=== PATIENT | female | born 1980 | race Two or more races ===

== ENCOUNTER 2025-06-02 18:22 | Emergency (ER) | payer MEDICAID, OTHER ==
[~2025-06-02] VITALS: Ht 165.1 cm; Wt 113.7 kg
[2025-06-02 18:32] VITALS: BP 209/160; PULSE 91; RESP 18; TEMP 99.3; O2SAT 99
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
[2025-06-02] MEDS ORDERED: HYDR-4902 PO (20:29)
[2025-06-02] MEDS ORDERED: BACIOIN15 TOP (20:29)
[2025-06-02] MEDS ORDERED: IBUP-1455 PO (20:29)
[2025-06-02] MEDS: SILVER SULFADIAZINE 1 % TOPICAL CREAM 50GM TOP ONE (20:45)
[2025-06-04] MEDS ORDERED: IBUP-1455 PO (12:28)
[2025-06-04] MEDS ORDERED: BACIOIN15 TOP (12:28)
[2025-06-04] MEDS ORDERED: HYDR-4902 PO (12:28)
== END 2025-06-02 20:45 | disposition home or self-care (01) ==
LOC: ER 18:22
DX: S50.12XA Contusion of left forearm, initial encounter (principal); V43.52XA Car driver injured in collision with other type car in traffic accident, initial encounter; Y93.I9 Activity, other involving external motion; Y92.488 Other paved roadways as the place of occurrence of the external cause; Y99.8 Other external cause status
CPT/HCPCS: 73090

== ENCOUNTER 2025-06-13 13:47 | Inpatient (IN) | payer MEDICAID, OTHER ==
[~2025-06-13] VITALS: Ht 172.7 cm; Wt 105.0 kg
[~2025-06-13 13:47] MED LIST: BACIOIN15 TOP; HYDR-4902 PO; IBUP-1455 PO
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
[2025-06-13 14:49] LABS: Hematocrit 34.9 % (36.0-46.0); Hemoglobin 11.6 g/dL (12.2-16.2); Mean Corpuscular Hemoglobin 21.8 pg (28.0-32.0); Mean Corpuscular Volume 65.2 fL (80.0-100.0); Nucleated Red Blood Cells % 0.1 %
[2025-06-13 14:53] LABS: Chloride 103 mmol/L (98-107); Sodium 141 mmol/L (136-145)
[2025-06-13 14:54] LABS: Anion Gap 11 (5-15); Carbon Dioxide 27 mmol/L (20-31)
[2025-06-13 14:55] LABS: Calcium 9.4 mg/dL (8.7-10.4)
[2025-06-13 14:57] LABS: Potassium 3.4 mmol/L (3.5-5.1)
[2025-06-13 15:00] LABS: BUN/Creatinine Ratio 8.8 (10.0-20.0); Blood Urea Nitrogen 11 mg/dL (9-23)
[2025-06-13 15:03] LABS: Glucose 109 mg/dL (74-106)
--- NOTE | 2025-06-13 15:10 | DVH ---
EXAM: CT HEAD WITHOUT CONTRAST INDICATION: pain TECHNIQUE: CT of the head without intravenous contrast. Radiation Dose Information: CT Dose: CTDI volume is 48.46 mGy. Dose-length product is 1152.11 mGy*cm The dose indicators for CT are the volume Computed Tomography (CT) Dose Index (CTDIvol) and the Dose Length Product (DLP), and are measured in units of mGy and mGy-cm, respectively. These indicators are not patient dose, but values generated from the CT scanner acquisition factors. The report includes radiation exposure data for exposures received during this examination. COMPARISON: None FINDINGS: There is no evidence of acute intracranial hemorrhage, extra-axial collection, mass effect, midline s hift, herniation or hydrocephalus. The ventricles, sulci and cisterns are age appropriate. The otoole-white differentiation is intact. Patchy periventricular and subcortical white matter hypoattenuation is nonspecific but may be related to small vessel ischemic disease. The visualized paranasal sinuses and mastoid air cells are clear. Inflammatory changes in the subcutaneous tissues around the right parotid may be secondary to infecti on. IMPRESSION: 1. No acute intracranial abnormality.
[2025-06-13] MEDS: SODIUM CHLORIDE 0.9% 1,000 ML IVB ONE ×2 (15:35→22:22)
[2025-06-13] MEDS: HYDROcodone-ACET 5/325MG TAB PO ONE (16:16)
--- NOTE | 2025-06-13 17:05 | DVH ---
CLINICAL INDICATION: fall TECHNIQUE: 3 radiographic views of the left hip were obtained. Comparison: None FINDINGS/IMPRESSION: No fractures or dislocations. Mild arthritic changes left hip.
[2025-06-13] MEDS: BACITRACIN TOP OINT 1 UD PKG TOP ONE (17:17)
--- NOTE | 2025-06-13 18:59 | ECG ---
[facility] Test Date: 2025-06-13 Test Time: 13:59:46 Pat Name: SYDNEE GARCIA Department: [facility] ED Room: [address] [place] [address] Gender: F Pot Feeder: ARIS : 1980 Requested By: NANCY WINSLOW Order Number: [id number] Reading MD: Tal Cabrales Measurements Intervals [place] Rate: 102 P: 55 [place]: 134 QRS: 27 QRSD: 77 T: 167 QT: 310 QTc: 404 Interpretive Statements Sinus tachycardia Ventricular premature complex Aberrant complex Probable left atrial enlargement Abnormal T, consider ischemia, lateral leads Borderline ST elevation, anterior leads Electronically Signed On 06-18-2025 17:58:02 PDT by Tal Cabrales Please click the below link to view image of tracing.
[2025-06-13] MEDS: MORPHINE SULFATE 4 MG/ML SYR/VIAL IV ONE (19:26)
[2025-06-13] MEDS: ONDANSETRON HCL 4 MG/2 ML VIAL IV ONE (19:26)
[2025-06-13 19:59] LABS: Urine Protein, UAD TRACE (Negative)
[2025-06-13 20:02] LABS: Cannabinoid Screen, Urine Pos (NEGATIVE); Opiate Scree,Urine Neg (NEGATIVE)
[2025-06-13 20:03] LABS: Amphetamine Screen, Urine Neg (NEGATIVE); Barbiturate Scree,Urine Neg (NEGATIVE); Benzodiazephine Screen, Urine Neg (NEGATIVE); Cocaine Screen, Urine Neg (NEGATIVE); Phencyclidine Screen, Urine Neg (NEGATIVE)
[2025-06-13] MEDS ORDERED: ONDANSETRON HCL 4 MG/2 ML VIAL IV PRN (21:45)
[2025-06-13] MEDS: levETIRAcetam 500 mg/100ml 100 ML IV ONE (22:21)
[2025-06-13] MEDS: LORazepam 2MG/ML-1ML VIAL IV ONE (22:22)
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
[2025-06-14] MEDS: POTASSIUM CHL 10 Meq TABLET PO ONE (00:51)
[2025-06-14 01:09] VITALS: BP 139/80; PULSE 71; RESP 18; TEMP 97.5; O2SAT 97
--- NOTE | 2025-06-14 07:43 | DVHDSRES ---
Discharge Summary Date of Admission Resident Creating Document: SAMMIE FAM Jun 13, 2025 at 21:32 Date of Discharge: Jun 14, 2025 Admitting Diagnosis Seizures Labs/Diagnostic Data: Laboratory Results Test 06/13/25 19:39 06/13/25 14:23 Urine Color Light-yellow (Yellow) Urine Clarity Clear (Clear) Urine pH 6.5 (5.0-9.0) Urine Specific [place] 1.015 (1.001-1.035) Urine Protein Trace (Negative) Urine Ketones Negative (Negative) Urine Blood Negative /uL (Negative) Urine Nitrite Negative (Negative) Urine Bilirubin Negative (Negative) Urine Urobilinogen Normal mg/dL (Negative) Urine Leukocyte Esterase Negative /uL (Negative) Urine RBC <1 /hpf (0 - 4) Urine Microscopic WBC 2 /HPF (0-5) Urine Squamous Epithelial Cells Few /hpf (<5) Urine Bacteria None seen /hpf (None Seen) Urine Glucose Normal mg/dL (Normal) Urine Opiates Screen Neg (NEGATIVE) Urine Fentanyl Screen Neg (NEGATIVE) Urine Barbiturates Screen Neg (NEGATIVE) Urine Phencyclidine Screen Neg (NEGATIVE) Urine Amphetamines Screen Neg (NEGATIVE) Urine Benzodiazepines Screen Neg (NEGATIVE) Urine Cocaine Screen Neg (NEGATIVE) Urine Cannabinoids Screen Pos (NEGATIVE) White Blood Count 8.3 10^3/uL (4.4-10.8) Red Blood Count 5.35 10^6/uL (4.0-5.20) Hemoglobin 11.6 g/dL (12.2-16.2) Hematocrit 34.9 % (36.0-46.0) Mean Corpuscular Volume 65.2 fL (80.0-100.0) Mean Corpuscular Hemoglobin 21.8 pg (28.0-32.0) Mean Corpuscular Hemoglobin Concent 33.4 g/dL (32.0-36.0) Red Cell Distribution Width 20.8 % (11.8-14.3) Platelet Count 557 10^3/uL (140-450) Mean Platelet Volume 7.3 fL (6.9-10.8) Neutrophils (%) (Auto) 77.0 % (37.0-80.0) Lymphocytes (%) (Auto) 16.9 % (10.0-50.0) Monocytes (%) (Auto) 4.6 % (0.0-12.0) Eosinophils (%) (Auto) 1.1 % (0.0-7.0) Basophils (%) (Auto) 0.4 % (0.0-2.0) Neutrophils # (Auto) 6.4 10 ^3/uL (1.6-8.6) Lymphocytes # (Auto) 1.4 10 ^3/uL (0.4-5.4) Monocytes # (Auto) 0.4 10 ^3/uL (0-1.3) Eosinophils # (Auto) 0.1 10 ^3/uL (0-0.8) Basophils # (Auto) 0 10 ^3/uL (0-0.2) Nucleated Red Blood Cells 0.1 % Sodium Level 141 mmol/L (136-145) Potassium Level 3.4 mmol/L (3.5-5.1) Chloride Level 103 mmol/L (98-107) Carbon Dioxide Level 27 mmol/L (20-31) Anion Gap 11 (5-15) Blood Urea Nitrogen 11 mg/dL (9-23) Creatinine 1.25 mg/dL (0.550-1.02) Glomerular Filtration Rate Calc 55 mL/min (>90) BUN/Creatinine Ratio 8.8 (10.0-20.0) Serum Glucose 109 mg/dL (74-106) Calcium Level 9.4 mg/dL (8.7-10.4) Plasma/Serum Blood Alcohol 3.6 mg/dL (<10) Other Laboratory Tests 06/13/25 14:23 Brief Hx & Hospital Course: A 44-year-old female presents to the ED due to seizure followed by lightheadedness in the morning. One episode of tonic-clonic seizure was witnessed by the family, which lasted for 1 minute. The patient reports having a seizure episode 2 years ago with urinary incontinence. She experienced another episode last month. The patient is not taking any medicine for seizure disorder. The patient reports she becomes confused after those episodes, she starts speaking incomprehensible words sometimes. She denies any chest pain, shortness of breath, fever, abdominal pain, nausea, vomiting, urinary symptoms or any other complaints today. The patient is noncompliant with her antihypertensive medications as well. She has a fibroid uterus, she is scheduled to follow up with creasing machine operator specialist. The patient was admitted for evaluation and management of a seizure episode, initial treatment included Ativan for acute seizure controlled, followed by IV Keppra 500 mg twice daily for maintenance therapy. Neurology consult was scheduled, seizure precautions were taken. EKG was done, which reveals no ischemic changes. Head CT reveals no acute intracranial abnormality. HbA1c was ordered for hyperglycemia. Hypertension was managed with metoprolol, which is her home medications. Patient was counseled for cessation of drug abuse and healthy lifestyle modification for obesity. This morning I was informed by the nurse that the patient eloped. Patient understood the importance of ongoing treatment and was aware of all the consequences of leaving against medical advice. Physical examination was not done on the day of discharge because the patient left AMA. Operations or Procedures Hip X-ray: No fractures or dislocations. Mild arthritic changes left hip. Head CT: 1. No acute intracranial abnormality. Condition at Discharge: Undetermined Final Diagnosis/Problems List Seizure disorder Hypertension EMILY due to VMN Uncontrolled Hypertension Hyperglycemia Hypokalemia Marijuana use disorder Anxiety Obesity Hypokalemia Discharge Disposition: Eloped Discharge Statement: "Patient was advised to return to the ER or call 911 if any headaches, dizziness, shortness of breath, chest pain, abdominal pain, bleeding, fevers, or worsening of medical condition. Patient was counseled about treatment plan, medications, possible side effects, patientverbalized understanding. All questions were answered to the best of my ability. This discharge took greater then 30 minutes in planning, reviewing documentation, counseling the patient, and discussing with other team members." ASSESSMENT ASSESSMENT Assessment SAMMIE FAM RESIDENT Jun 14, 2025 07:43
[2025-06-14] MEDS ORDERED: levETIRAcetam 500 mg/100ml 100 ML IV SCH (10:00)
[2025-06-14] MEDS ORDERED: METOPROLOL TARTRATE 25 MG TAB PO SCH (10:00)
== END 2025-06-14 03:31 | disposition left against medical advice (07) | DRG 53 ==
LOC: EDBD 13:47 → ER 13:47 → OVERFLOW 21:32 → MERGE 21:32 → OVERFLOW 06-14 03:31
PROVIDERS: ADMIT Internal Medicine Geriatric Medicine; ATTEND Emergency Medicine
DX: G40.909 Epilepsy, unspecified, not intractable, without status epilepticus (principal); N17.0 Acute kidney failure with tubular necrosis; D25.9 Leiomyoma of uterus, unspecified; E66.9 Obesity, unspecified; D50.9 Iron deficiency anemia, unspecified; F12.10 Cannabis abuse, uncomplicated; I10 Essential (primary) hypertension; Z68.35 Body mass index [BMI] 35.0-35.9, adult; E87.6 Hypokalemia; R73.9 Hyperglycemia, unspecified; F41.9 Anxiety disorder, unspecified; Z53.29 Procedure and treatment not carried out because of patient's decision for other reasons
CPT/HCPCS: 36415; 70450; 73502; 80048; 80307; 80320; 81001; 85025; 93005; 96365; 96375; 99291; G0378; J2405